=== PATIENT | female | born 2000 | race Two or more races ===

== ENCOUNTER 2024-06-21 14:56 | Inpatient (IN) | payer OTHER ==
[~2024-06-21] VITALS: Ht 165.1 cm; Wt 103.0 kg
[~2024-06-21 14:56] MED LIST: ADVIL100 MG PO; AMPICILLIN125 MG/5 M PO
--- NOTE | 2024-06-21 15:45 | NUR ---
PTE ALERTA Y ORIENTADA X3 QUIEN REFIRE VENIR POR DOLOR DE OIDO APRIL
[2024-06-21] MEDS ORDERED: CIPROFLOXACIN IN 5 % DEXTROSE 400 MG/200 ML PIGGYBAG IV STA (16:19)
[2024-06-21] MEDS ORDERED: KETOROLAC TROMETHAMINE 15 MG VIAL IV STA (16:20)
[2024-06-21 17:11] LABS: HEMATOCRIT 39.3 % (36.0-45.00); HEMOGLOBIN 12.9 g/dL (12.0-15.00); MEAN CELL VOLUME 82.7 fL (80.00-100.00); MEAN CORPUSCULAR HEMOGLOBIN 27.1 pg (27.00-32.0); MEAN CORPUSCULAR HGB CONC 32.8 g/dl (32.0-36.0); PLATELET COUNT 314 K/uL (150-450); RED BLOOD COUNT 4.76 M/uL (4.00-6.00); RED CELL DISTRIBUTION WIDTH 14.4 % (11.5-14.5)
[2024-06-21 18:23] LABS: CALCIUM 9.1 mg/dL (8.5-10.1); CREATININE SERUM 0.72 mg/dL (0.55-1.02); GFR 99.52; POTASSIUM 3.56 mEq/L (3.5-5.1)
--- NOTE | 2024-06-21 18:52 | NUR ---
SE ORIENTA A PACIENTE SOBRE TRATAMIENTO MEDICO LA CUAL INDICA ENTENDER Y ACEPTAR. SE COLECTAN MUESTRAS DE LABORATORIO BAJO MEDIDAS ASEPTICAS Y SE ADMINISTRAN MEDICAMENTOS DARCY ORDEN MEDICA. CANALIZACION PATENTE RASHAUN DE EDEMA ERITEMA.
[2024-06-21] MEDS ORDERED: VANCOMYCIN HCL 1,000 MG VIAL IV STA (21:45)
[2024-06-21] MEDS ORDERED: PIPERACILLIN/TAZOBACTAM SODIUM 3.375 GM VIAL IV STA (21:45)
--- NOTE | 2024-06-21 22:24 | NUR ---
SE ORIENTA PACIENTE DE MEDICAMENTOS DARCY ORDEN MEDICA. REFIERE ENTENDER. SE VERIFICA VENA EN BRAZO IZQ, ESTA ESTA PATENTE, RASHAUN DE EDEMA Y/O ERITEMA. SE ADMINISTRA MEDICAMENTO CON MEDIDAS ASEPTICAS CORRESPONDINETES. SE ENTREGA PACIENTE A MR STEVE BELTRAN Y MR BRETT BELTRAN DEL AREA DE OBSERVACION PARA CONTINUIDAD DE TRATAMIENTO Y MEDICAMENTO PENDIENTE.
[2024-06-21] MEDS ORDERED: 0.9 % SODIUM CHLORIDE 1,000 ML IV SCH (23:30)
[2024-06-21] MEDS ORDERED: KETOROLAC TROMETHAMINE 15 MG VIAL IU ONE (23:30)
[2024-06-21] MEDS ORDERED: ACETAMINOPHEN 500 MG GEL..CAP PO PRN (23:30)
[2024-06-22] MEDS ORDERED: PIPERACILLIN/TAZOBACTAM SODIUM 3.375 GM in DEXTROSE 5 % IN WATER 100 ML IV SCH
[2024-06-22 06:20] LABS: INR 1.09; PARTIAL THROMBOPLASTIN TIME 31.9 SECONDS (22.0-34.0); PROTHROMBIN TIME 11.8 SECONDS (9.0-11.5)
[2024-06-22 08:17] VITALS: BP 113/69; O2SAT 96
[2024-06-22] MEDS ORDERED: VANCOMYCIN HCL 1,000 MG VIAL IV SCH ×2 (09:00→21:00)
[2024-06-22] MEDS ORDERED: FAMOTIDINE/PF 20 MG in 0.9 % SODIUM CHLORIDE 8 ML IV PUSH SCH (09:00)
[2024-06-22 11:51] VITALS: BP 110/70; O2SAT 100
[2024-06-22 12:16] LABS: PH,URINE 5.5 (5.0-8.0); URINE APPEARANCE Clear; URINE BILIRRUBIN Negative (NEGATIVE); URINE BLOOD Negative; URINE COLOR Yellow; URINE GLUCOSE Negative (NEGATIVE); URINE KETONE 15 (NEGATIVE); URINE LEUKOCYTE Negative; URINE NITRATE Negative; URINE PROTEIN Trace (NEGATIVE); URINE UROBILINOGEN 0.2 E.U./dl
[2024-06-22 12:17] LABS: URINE BACTERIA 56.6 uL (0.0-1933); URINE EPITHELIAL CELLS 38.6 uL (0.0-38.8); URINE RBC 10.8 uL (0.0-20.8); URINE WBC 9.1 uL (0.0-23.2)
[2024-06-22 12:30] LABS: URINE CAST 0.45 uL (0.0-1.40)
[2024-06-22 16:00] VITALS: BP 95/64; O2SAT 96
[2024-06-22 16:21] VITALS: BP 120/76; O2SAT 99
[2024-06-22] MEDS ORDERED: CEFEPIME HCL 2,000 MG in 0.9 % SODIUM CHLORIDE 100 ML IV SCH (17:00)
[2024-06-22] MEDS ORDERED: METROnidazole 500 MG TABLET PO SCH (17:00)
[2024-06-23 00:05] VITALS: BP 124/65; O2SAT 100
[2024-06-23 07:40] LABS: HEMATOCRIT 35.4 % (36.0-45.00); HEMOGLOBIN 11.7 g/dL (12.0-15.00); MEAN CELL VOLUME 82.8 fL (80.00-100.00); MEAN CORPUSCULAR HEMOGLOBIN 27.4 pg (27.00-32.0); MEAN CORPUSCULAR HGB CONC 33.1 g/dl (32.0-36.0); PLATELET COUNT 279 K/uL (150-450); RED BLOOD COUNT 4.27 M/uL (4.00-6.00); RED CELL DISTRIBUTION WIDTH 14.2 % (11.5-14.5)
[2024-06-23 08:00] VITALS: BP 119/78; O2SAT 99
[2024-06-23 08:21] LABS: CALCIUM 8.4 mg/dL (8.5-10.1); CREATININE SERUM 0.46 mg/dL (0.55-1.02); GFR 166.89
[2024-06-23 16:49] VITALS: BP 94/59; O2SAT 97
[2024-06-23 23:44] VITALS: BP 107/67; O2SAT 100
[2024-06-24 08:00] VITALS: BP 141/91; O2SAT 98
== END 2024-06-24 13:12 | disposition home or self-care (01) | DRG 872 ==
LOC: ER 14:58 → SEC-K 06-22 00:33 → SURG 06-22 09:16
PROVIDERS: General Practice; Internal Medicine; ADMIT Student in an Organized Health Care Education/Training Program; ATTEND Student in an Organized Health Care Education/Training Program
PROC: BW28ZZZ Computerized Tomography (CT Scan) of Head (ICD-10-PCS; principal; 2024-06-21)
DX: A41.9 Sepsis, unspecified organism (principal); H70.001 Acute mastoiditis without complications, right ear; R65.10 Systemic inflammatory response syndrome (SIRS) of non-infectious origin without acute organ dysfunction